=== PATIENT | male | born 1990 | race Asian ===

== ENCOUNTER 2018-04-30 08:29 | Emergency (ER) | payer OTHER ==
[~2018-04-30] VITALS: Ht 170.2 cm; Wt 81.5 kg
[~2018-04-30 08:29] MED LIST: NOCURR
[2018-04-30] MEDS ORDERED: IBUPROFEN 600 MG TABLET PO ONE (09:00)
[2018-04-30] MEDS ORDERED: DEXAMETHASONE SOD PHOS 4 MG/ML 5 ML VIAL IM ONE (09:00)
[2018-04-30 09:28] LABS: INFLUENZA TYPE A NEGATIVE FOR TYPE A (NEGATIVE)
[2018-04-30 09:29] LABS: INFLUENZA TYPE B NEGATIVE FOR TYPE B (NEGATIVE)
[2018-04-30 09:45] VITALS: BP 152/69
== END 2018-04-30 09:50 | disposition home or self-care (01) ==
LOC: EMS 08:30
DX: B34.9 Viral infection, unspecified (principal); F17.210 Nicotine dependence, cigarettes, uncomplicated
CPT/HCPCS: 87430; 87804; 96372; 99283; J1100